=== PATIENT | female | born 1960 | race Caucasian/White ===

== ENCOUNTER → 2019-04-24 08:34 | Outpatient (CLI) | payer OTHER, SELFPAY ==
--- NOTE | 2019-04-24 | DI.MG.S_ITS ---
BILATERAL DIGITAL SCREENING MAMMOGRAM 3D/2D WITH CAD: 04/24/2019 CLINICAL: Routine screening. Family history of breast cancer. Comparison is made to exams dated: 06/15/2015 mammogram, 06/12/2014 mammogram, and 07/03/2017 mammogram - [facility]. There are scattered fibroglandular elements in both breasts. Current study was also evaluated with a Computer Aided Detection (CAD) system. No significant masses, calcifications, or other findings are seen in either breast. There has been no significant interval change. IMPRESSION: NEGATIVE There is no mammographic evidence of malignancy. A 1 year screening mammogram is recommended. This exam was interpreted at Station ID: [id number]. NOTE: For mammograms, a report in lay terms will be sent to the patient. Approximately 15% of breast malignancies will not be visualized mammographically. In the management of a palpable breast mass, a negative mammogram must not discourage biopsy of a clinically suspicious lesion. Electronically Signed By: Jovita valdez/clover:04/24/2019 09:54:54 letter sent: Normal Exam ACR BI-RADS Category 1: Negative 3341F
== END ==
PROVIDERS: PCP Student in an Organized Health Care Education/Training Program; Visit Provider Student in an Organized Health Care Education/Training Program
DX: Z12.31 Encounter for screening mammogram for malignant neoplasm of breast (principal); Z80.3 Family history of malignant neoplasm of breast
CPT/HCPCS: 77063; 77067

== ENCOUNTER 2019-06-07 14:51 | Day surgery (SDC) | payer OTHER, SELFPAY ==
--- NOTE | 2019-06-07 | PATH_ITS ---
[facility] Accession Number: [id number] . 01 Material submitted: . colon - SIGMOID POLYP X3 (2-8MM) . 02 Diagnosis: Sigmoid Colon Polyps, 2-8 mm, Biopsies: Hyperplastic polyp x3. MRV 06/10/2019 1325 Local . 02 Electronically signed: . Minor Rodríguez MD, PhD, Pathologist NPI- [id number] . 01 Gross description: . SIGMOID POLYP X3 (2-8MM): Received in formalin are 3 fragment(s) of smiley, soft tissue measuring 0.4 x 0.3 x 0.3 cm to 0.3 x 0.3 x 0.2 cm submitted entirely in 1 cassette(s) /QBJ 06/08/2019 0703 Local . 02 Pathologist provided ICD-10: K63.5 . 02 CPT . 092991 Performed at: 01 [facility] [address] [facility] [place], [place], [place] [id number] MD Lorenzo Badillo MD Phone: [phone] Performed at: [address] [facility] [address] [place], [place] [id number] MD Lakeisha Woods MD Phone: [phone]
--- NOTE | 2019-06-07 07:39 | PM.HP.1 ---
History of Present Illness History of Present Illness Date Patient Seen: 06/07/19 Time Patient Seen: 16:25 Chief complaint: [id number] Narrative: 58 Years Old Female comes in today for consideration of a screening colonoscopy. Has had one previous colonosocpy in her 30s, reportedly normal. Patient cannot quite remember what was indicated for, possibly abdominal pain. Paternal grandfather had colon cancer that was fatal. There have been no lower GI symptoms suggesting disease such as change in bowel habits, bleeding, abdominal pain or anemia. Overall health issues have been stable, including no major cardiac events for at least 6 weeks. Current Medications: 1) Estrace 0.1 Mg/gm Vaginal Cream (Estradiol) .... Insert 0.5 gram vaginally 2 times a week for atrophic vaginitis. 2) Meloxicam 15 Mg Oral Tablet (Meloxicam) .... Take one tablet by mouth daily as needed for pain 3) Metformin Hcl Er 500 Mg Oral Tablet Extended Release 24 Hour (Metformin Hcl) .... Take 2 at bedtime 4) Glyburide 5 Mg Oral Tablet (Glyburide) .... Take one tablet once daily before breakfast, for diabetes. 5) Lisinopril 5 Mg Oral Tablet (Lisinopril) .... Take 1 tablet by mouth once a day 6) Atorvastatin Calcium 40 Mg Oral Tablet (Atorvastatin Calcium) .... Take 1 tablet by mouth daily for cholesterol control. 7) Doxepin Hcl 50 Mg Oral Capsule (Doxepin Hcl) .... Take 1 tablet by mouth once a day at bedtime. 8) Clobetasol Propionate 0.05 % External Cream (Clobetasol Propionate) .... Apply thin film to the affected area twice daily as needed. Not for use on face. 9) Hydrocortisone Valerate 0.2 % External Cream (Hydrocortisone Valerate) .... Apply affected areas of hands twice daily as needed 10) Aspirin 81 Mg Oral Tablet (Aspirin) .... Take one daily to reduce cardiovascular risk Allergies: 1) Penicillin (Critical) 2) Adhesive Tape (Mild) Past Medical History: Reviewed history from 02/04/2019 and no changes required: HYPERTENSION (ICD-401.1) (ODA93-V48) BURSITIS, RIGHT SHOULDER (ICD-726.10) (GBU93-Z02.51) HYPERLIPIDEMIA (ICD-272.4) (KXJ21-D38.5) DIABETES MELLITUS, TYPE II (ICD-250.00) (EVT55-C57.9) DM, TYPE 2, W/ NEURO COMPL (ICD-250.62) (IKC09-T01.49) LICHEN SCLEROSUS OF EXTERNAL FEMALE GENITAL ORGANS (ICD-701.0) (JCL29-C32.4) OSTEOARTHRITIS (ICD-715.90) (YPN32-S88.90) CARPAL TUNNEL SYNDROME, RIGHT (ICD-354.0) (PKY91-E83.01) PAIN, FOOT, LEFT (ICD-729.5) (REV18-X66.672) ECZEMA (ICD-692.9) (SED45-P97.9) HYPERCALCEMIA (ICD-275.42) (NVP59-K99.52) ALCOHOL DEPENDENCE (ICD-303.90) (NLH83-D95.20) OBESITY (BMI <40) (ICD-278.00) (IGJ69-S58.9) TOTAL HYSTEREC WITH BSO (11/2008) (ICD-V45.77) (RYO85-S18.79) Former smoker, quit >1 yr (ICD-V15.82) (TRA81-B48.891) Past Surgical History: Knee Arthroscopy (1999) Tonsillectomy (1978) Total Hysterec with BSO (11/2008) Colonoscopy, diagnostic in 30s, normal Family History: Father: (1930) Heart Disease, Depression, Diabetes, Hypertension, Hyperlipidemia, Thyroid Cancer Mother: (8) Breast Cancer, Depression, Hypertension, Hyperlipidemia, Ovarian Cancer?, Thyroid Cancer Siblings: Deafness, Hepatitis Type C Sister (1954) Sister (1955) Brother (1962) Paternal grandfather, colon cancer, fatal Social History: Reviewed history from 11/28/2013 and no changes required: Marital Status: Single - [facility] (1953) Retired Children: Cindy (1997) Occupation: Homemaker Household Members: Julius Education: 12th grade Alcohol drinks/day: 3/day >5/day in last 3 mos: no Caffeine use/day: 3 Type of Exercise: no Exercise Times per Week: 3 Guns in home: no Dental Care w/in 6 mos.: yes Sun Exposure: occasionally Fall Risk: no falls in past year Seat Belt Use: yes Smoking Status: former smoker Tobacco Type: cigarettes Counseled to Quit Smoking: yes Packs/Day: <0.25 Year quit smokin Drug Use: never Meds Home Medications and Allergies Home Medications Medication Instructions Recorded Confirmed Type atorvastatin 40 mg PO DAILY 06/07/19 06/07/19 History clobetasol 1 applic TOPICAL BEDTIME 06/07/19 06/07/19 History doxepin 50 mg PO BEDTIME 06/07/19 06/07/19 History estradiol [Estrace] 0.5 g VAGINAL Q2D 06/07/19 06/07/19 History glyburide 5 mg PO DAILY 06/07/19 06/07/19 History lisinopril 5 mg PO DAILY 06/07/19 06/07/19 History meloxicam 15 mg PO DAILY 06/07/19 06/07/19 History metformin 500 mg PO PRN PRN 06/07/19 06/07/19 History Allergies Allergy/AdvReac Type Severity Reaction Status Date / Time Penicillins Allergy Swelling Verified 06/07/19 15:35 of Lip/Tongue/Throat Review of Systems Review of Systems Narrative: General: Complains of fatigue, weakness, and ill feeling; denies fever, chills, sweats, loss of appetite, weight change, waking-up tired, fatigued/sleepy during day, snoring, and problem getting to or staying asleep. Eyes: Complains of blurring; denies double vision, irritation/itching, redness, discharge, vision loss, eye pain, and light intolerance. ENT: Denies earache, ear discharge, ringing ears, decreased hearing, nasal congestion, nasal discharge, postnasal drip, nosebleeds, sore throat, hoarseness, itching nose/eyes, and sneezing. CV: Denies chest discomfort, palpitations, lightheadedness, passing out, SOB with exertion, SOB lying flat, PND-sudden nocturnal shortness of breath, and ankle edema. Resp: Denies cough, wheeze, SOB at rest, sputum, coughing up blood, and painful breathing. GI: Complains of diarrhea and painful swallowing; denies nausea, vomiting, constipation, change in bowel habits, abdominal pain, dark black stools, blood in stools, gas/bloating, indigestion/heartburn, reflux, loss of appetite, swallowing problems, and jaundice. : Denies painful urination, blood in urine, frequency, nocturia, incontinence, urgency, hesitancy, vaginal discharge, amenorrhea, abnormally heavy periods, abnormal vaginal bleeding, pelvic pain, painful intercourse, less interested in sex, and genital sores. MS: Complains of lower back pain, joint stiffness, muscle cramps, muscle weakness, and pain radiating down leg; denies neck pain, upper back pain, joint pain, joint swelling, restless legs, and leg pain with exertion. Derm: Denies rash, itching, dryness, skin lesions, changing lesions, and non-healing sores. Neuro: Complains of weakness of a limb, numbness/tingling, and frequent headaches; denies seizure, tremor, dizziness, transient blindness, balance problems, frequent falls, severe headaches, difficulty speaking, difficulty swallowing, clumsiness, confusion, and memory loss. Psych: Complains of sadness/hopelessness, feeling overwhelmed, lack of get/pleasure, and inadequate sleep; denies anxiety/excessive worry, excessive sleep, change in appetite, poor concentration, suicidal ideation, hallucinations, paranoia, and phobia. Endo: Denies cold intolerance, heat intolerance, excessive thirst, excessive hunger, excessive urination, and unintentional weight change. Heme: Denies abnormal bruising, bleeding problems, bleeding gums, frequent nosebleeds, and enlarged lymph nodes. Allergy: Denies hives, allergic rash, allergy symptoms, seasonal allergies, food intolerance, animal intolerance, and frequent infections. Breast: Denies left breast lump, right breast lump, breast pain, breast tenderness, erythema, nipple discharge, bloody nipple discharge, abnormal mammogram, breast enlargement, and currently . Exam Narrative Exam Narrative: General: Alert and oriented, appearing stated age and in no acute distress. Head: Head normocephalic/atraumatic. Neck: Neck soft and supple, no lymphadenopathy. Lungs: Clear to auscultation bilaterally, no wheezes, rhonchi or rales. Heart: Normal S1 and S2 with regular rate and rhythm, no audible murmurs, rubs or gallops. Abdomen: Soft, non-tender, non-distended, no organomegaly. Possitive bowel sounds. Psych: Alert and oriented x 3. Assessment & Plan Assessment & Plan narrative: Problem # 1: COLON CANCER SCREENING 1. Colonoscopy The nature and character of the procedure as well as anticipated results were discussed. The possibility of not completing the procedure was also discussed. Possible complications including aspiration pneumonia, bleeding, perforation and reaction to medications either for sedation or preparation and missed lesions were discussed. Questions were answered and proceeding to the colonoscopy was elected. Informed consent signed. I sincerely appreciate the referral allowing me to participate in this patient's care. Please contact me with any questions or concerns.
--- NOTE | 2019-06-07 07:41 | PM.OP.ENDO ---
Operative Date/Time/Diagnoses Date of procedure: 06/07/19 Time of procedure: 16:25 Pre-op diagnosis: 1. Screening for colon cancer Post-op diagnosis: other (Sigmoid polyp x3, 2-8 mm, removed with cold biopsy forceps as well as methylene blue lift and cold snare) Procedure & Clinicians Study performed: Colonoscopy Same procedure as scheduled: Yes Indications: 1. Screening for colon cancer Surgeon: Karlene Smith Procedure Notes SCOAP/Timeout: 4:36 p.m. Procedure in detail: ENDOSCOPIST: Karlene Smith MD Sedation RN: Good Trevino RN Sedation start time: 4:36 p.m. Sedation end time: 5:15 p.m. PROCEDURE: Colonoscopy with cold biopsy, methylene blue list and cold snare INDICATIONS: 1. Screening for colon cancer MEDICATION: Levsin 0.125 mg sublingual, incremental doses of Versed and fentanyl until appropriate level sedation achieved. ASA CLASS: 2 CECAL WITHDRAWAL TIME: 25 minutes COMPLICATIONS: None. EXTENT OF PROCEDURE: Cecum. QUALITY OF PREP: Good with portions of liquid stool. PROCEDURE: Prior to insertion of the colonoscope, a digital rectal examination was accomplished with circumferential palpation of the distal rectal mucosa without significant findings being noted. The high-definition colonoscope was passed into the rectum in the usual fashion and advanced over to the cecum without difficulty. The ileocecal valve, appendiceal stoma, and medial wall all could be inspected and no abnormalities were seen. ASCENDING COLON: As the colonoscope was withdrawn, care was taken to expose and inspect the haustral folds and no abnormalities were seen. HEPATIC FLEXURE: Normal no polyps, diverticula or other abnormalities. TRANSVERSE COLON: Normal no polyps, diverticula or other abnormalities. DESCENDING COLON: Normal no polyps, diverticula or other abnormalities. SIGMOID COLON: Three polyps were appreciated, 2-8 mm in size. The smaller 2 polyps were removed with cold biopsy forceps. The largest polyp was lifted with methylene blue and removed with a 10 mm cold snare. Excellent hemostasis. Otherwise, no diverticula or other abnormalities. RECTUM: Normal. J maneuver was produced. There was no significant perianal disease. The J maneuver was broken. The remainder of the rectum was inspected and there was no external hemorrhoid disease. The scope was withdrawn. IMPRESSION: 1. Sigmoid polyp x3, 2-8 mm. Smaller polyps were removed with cold biopsy forceps. 8 mm polyp lifted with methylene blue and removed with cold biopsy forceps. PLAN: 1. Follow-up in clinic status post pathology results. The possibility of a missed lesion including a malignancy has been discussed with the patient previously. Potential alarm symptoms have been discussed and should be reported immediately. Post-procedure Recommendations: Will call with biopsy results Follow up: weeks (2) Disposition: PACU
[2019-06-07] MEDS: SODIUM CHLORIDE 0.9% 1,000 ML 200 ML IV (15:07)
[2019-06-07] MEDS: HYOSCYAMINE 0.125 MG TABLET PO (15:12)
[2019-06-07 15:13] VITALS: BP 140/84; PULSE 84; RESP 20; TEMP 36.8; O2SAT 98; BMI 34.2
[2019-06-07] MEDS: METHYLENE BLUE 50 MG/10 ML VIAL INJ (17:17)
[2019-06-07] MEDS: MIDAZOLAM 5 MG/ML VIAL 4 MG IV (17:18)
[2019-06-07] MEDS: fentaNYL 250 MCG/5 ML INJ IV (17:19)
[2019-06-07 17:25] VITALS: BP 146/74; PULSE 72; RESP 9; TEMP 36.6; O2SAT 100
[2019-06-07 17:29] VITALS: BP 153/83; PULSE 69; RESP 12; O2SAT 100
== END 2019-06-07 17:50 | disposition home or self-care (01) ==
PROVIDERS: PCP Student in an Organized Health Care Education/Training Program; Referring Provider Student in an Organized Health Care Education/Training Program; Visit Provider Student in an Organized Health Care Education/Training Program
PROC: 0DJD8ZZ Inspection of Lower Intestinal Tract, Via Natural or Artificial Opening Endoscopic (ICD-10-PCS; CPT 45378; principal; 2019-06-07 16:00)
DX: Z12.11 Encounter for screening for malignant neoplasm of colon (principal); D12.5 Benign neoplasm of sigmoid colon
CPT/HCPCS: 45381; 45385; 45380; J2250; J3010; Q9968

== ENCOUNTER → 2020-10-26 08:09 | Outpatient (CLI) | payer OTHER, SELFPAY ==
--- NOTE | 2020-10-26 08:11 | DI.MG.S_ITS ---
BILATERAL DIGITAL SCREENING MAMMOGRAM 3D/2D WITH CAD: 10/26/2020 CLINICAL: Routine screening. Family history of breast cancer. Comparison is made to exams dated: 04/24/2019 mammogram, 07/03/2017 mammogram, and 06/15/2015 mammogram - [facility]. There are scattered fibroglandular elements in both breasts. Current study was also evaluated with a Computer Aided Detection (CAD) system. There are benign calcifications in both breasts. No significant masses, calcifications, or other findings are seen in either breast. There has been no significant interval change. IMPRESSION: BENIGN There is no mammographic evidence of malignancy. A 1 year screening mammogram is recommended. This exam was interpreted at Station ID: [id number]. NOTE: For mammograms, a report in lay terms will be sent to the patient. Approximately 15% of breast malignancies will not be visualized mammographically. In the management of a palpable breast mass, a negative mammogram must not discourage biopsy of a clinically suspicious lesion. Electronically Signed By: Lorenzo givens/clover:10/26/2020 09:50:14 letter sent: Normal Exam ACR BI-RADS Category 2: Benign Finding(s) 3342F
== END ==
PROVIDERS: PCP Student in an Organized Health Care Education/Training Program; Referring Provider Student in an Organized Health Care Education/Training Program; Visit Provider Student in an Organized Health Care Education/Training Program
DX: Z12.31 Encounter for screening mammogram for malignant neoplasm of breast (principal); Z80.3 Family history of malignant neoplasm of breast
CPT/HCPCS: 77063; 77067

== ENCOUNTER → 2021-12-31 14:44 | Outpatient (CLI) | payer OTHER, SELFPAY ==
--- NOTE | 2021-12-31 14:45 | DI.MG.S_ITS ---
BILATERAL DIGITAL SCREENING MAMMOGRAM 3D/2D WITH CAD: 12/31/2021 CLINICAL: Routine screening. Family history of breast cancer. Comparison is made to exams dated: 10/26/2020 mammogram, 04/24/2019 mammogram, and 07/03/2017 mammogram - [facility]. There are scattered areas of fibroglandular density in both breasts (category b / 25%-50% glandular tissue). Current study was also evaluated with a Computer Aided Detection (CAD) system. There are benign calcifications in both breasts. No significant masses, calcifications, or other findings are seen in either breast. There has been no significant interval change. IMPRESSION: BENIGN There is no mammographic evidence of malignancy. A 1 year screening mammogram is recommended. Based on Tyrer-Cuzick model (a risk assessment model), the patient's lifetime risk is 20.8% and her 10 year risk is 9.0%. If a patient has an elevated risk, a more comprehensive evaluation should be considered and/or a referral to a genetic counselor. The [employer], [employer], and NCCN Guidelines advise the consideration of Breast MRI as an adjunct to screening mammography in patients whose Lifetime risk to develop breast cancer is 20% or higher. This exam was interpreted at Station ID: [id number]. NOTE: For mammograms, a report in lay terms will be sent to the patient. Approximately 15% of breast malignancies will not be visualized mammographically. In the management of a palpable breast mass, a negative mammogram must not discourage biopsy of a clinically suspicious lesion. Electronically Signed By: Kel ruiz/clover:12/31/2021 16:52:04 letter sent: Normal Exam ACR BI-RADS Category 2: Benign Finding(s) 3342F
== END ==
PROVIDERS: PCP Family Medicine; Referring Provider Family Medicine; Visit Provider Family Medicine
DX: Z12.31 Encounter for screening mammogram for malignant neoplasm of breast (principal); Z80.3 Family history of malignant neoplasm of breast
CPT/HCPCS: 77063; 77067

== ENCOUNTER → 2023-01-03 15:32 | Outpatient (CLI) | payer OTHER, SELFPAY ==
--- NOTE | 2023-01-03 | DI.MG.S_ITS ---
BILATERAL DIGITAL SCREENING MAMMOGRAM 3D/2D WITH CAD: 01/03/2023 CLINICAL: Routine screening. Family history of breast cancer. Comparison is made to exams dated: 12/31/2021 mammogram, 04/24/2019 mammogram, and 10/26/2020 mammogram - [facility]. There are scattered areas of fibroglandular density in both breasts (category b / 25%-50% glandular tissue). Current study was also evaluated with a Computer Aided Detection (CAD) system. There are benign calcifications in both breasts. No significant masses, calcifications, or other findings are seen in either breast. There has been no significant interval change. IMPRESSION: BENIGN There is no mammographic evidence of malignancy. A 1 year screening mammogram is recommended. Consider supplemental MRI screening. Based on Tyrer-Cuzick model (a risk assessment model), the patient's lifetime risk is 20.3% and her 10 year risk is 9.1%. If a patient has an elevated risk, a more comprehensive evaluation should be considered and/or a referral to a genetic counselor. The [place] [employer], [employer], and NCCN Guidelines advise the consideration of Breast MRI as an adjunct to screening mammography in patients whose Lifetime risk to develop breast cancer is 20% or higher. This exam was interpreted at Station ID: [id number]. NOTE: For mammograms, a report in lay terms will be sent to the patient. Approximately 15% of breast malignancies will not be visualized mammographically. In the management of a palpable breast mass, a negative mammogram must not discourage biopsy of a clinically suspicious lesion. Electronically Signed By: Kel Cornelius M.D. lc/:01/04/2023 07:54:07 letter sent: Normal Exam ACR BI-RADS Category 2: Benign Finding(s) 3342F
== END ==
PROVIDERS: PCP Family Medicine; Referring Provider Registered Nurse; Visit Provider Registered Nurse
DX: Z12.31 Encounter for screening mammogram for malignant neoplasm of breast (principal); Z80.3 Family history of malignant neoplasm of breast
CPT/HCPCS: 77063; 77067

== ENCOUNTER → 2023-01-25 09:26 | Outpatient (CLI) | payer OTHER, SELFPAY ==
--- NOTE | 2023-01-25 | DI.RAD.S_ITS ---
Bone Density Report Name: RASHEED TAVERA Age: 62 Sex: Female Ethnicity: White Date of : 1960 Indication: postmenopausal; screening for osteoporosis; Referring Provider: CHRISS CARMEN Study: Bone densitometry was performed. Exam Date: January 25, 2023 Accession number: [id number] Bone Density: Region BMD T-score Z-score Classification AP Spine(L1-L4) 1.028 -0.2 1.4 Normal Femoral Neck (Left) 0.815 -0.3 1.1 Normal Total Hip (Left) 0.895 -0.4 0.7 Normal Femoral Neck (Right) 0.796 -0.5 0.9 Normal Total Hip (Right) 0.866 -0.6 0.5 Normal Total Hip Mean 0.881 -0.5 0.6 Normal World Health Organization criteria for BMD impression classify patients as: Normal (T-score at or above -1.0), Osteopenia (T-score between -1.0 and -2.5), or Osteoporosis (T-score at or below -2.5). 10-year Fracture Risk: FRAX not reported because: All T-scores for Spine Total, Hip Total, Femoral Neck at or above -1.0 Impression: The patient has normal bone mass. Discussion: BONE DENSITY IS ABOVE THE MINIMUM DESIRABLE LEVEL AT ALL SKELETAL SITES TESTED. This patient's bone mineral density is above the minimum desirable level (T-score -1.0 or better) at all sites measured. The patient should follow a healthful lifestyle (good nutrition with adequate calcium and vitamin D, and appropriate weight-bearing exercise). Follow-Up: Consider repeating this study in 5 years or sooner if there is some new clinical indication. Reported by: DAVID OSBORNE M.D on 01/25/2023 9:53:00 AM.
== END ==
PROVIDERS: PCP Registered Nurse; Referring Provider Registered Nurse; Visit Provider Registered Nurse
DX: E21.0 Primary hyperparathyroidism (principal)
CPT/HCPCS: 77080

== ENCOUNTER 2023-09-06 12:59 | Emergency (ER) | payer OTHER, SELFPAY ==
[2023-09-06 13:02] VITALS: BP 130/67; PULSE 90; RESP 18; TEMP 36.6; O2SAT 98; BMI 29.6
--- NOTE | 2023-09-06 13:29 | DI.RAD.S_ITS ---
PROCEDURE: XR CHEST 1V INDICATIONS: chest pain TECHNIQUE: One view of the chest was acquired. COMPARISON: [facility], , CHEST 1 VIEW, 10/04/2014, 14:03. FINDINGS: Surgical changes and devices: None. Lungs and pleura: Lungs are clear. No pleural effusions or pneumothorax. Mediastinum: Mediastinal contours appear normal. Mild cardiomegaly. Bones and chest wall: No suspicious bony lesions. Overlying soft tissues appear unremarkable. IMPRESSION: Mild cardiomegaly. No evidence acute pulmonary process. Dictated by: Melvin Cope M.D. on 09/06/2023 at 14:25 Approved by: Melvin Cope M.D. on 09/06/2023 at 14:26
[2023-09-06 13:47] VITALS: PULSE 85; O2SAT 96
[2023-09-06 13:57] LABS: Add Manual Diff / Slide Review NO; Basophils Absolute Auto 100 /uL (0-100); Basophils Percent Auto 0.6 % (0-2); Eosinophils Absolute Auto 300 /uL (0-450); Eosinophils Percent Auto 2.1 % (2-4); Hematocrit 37.6 % (36-46); Hemoglobin 12.8 g/dL (12.0-16.0); Lymphocytes Absolute Auto 2100 /uL (1100-4500); Lymphocytes Percent Auto 16.8 % (25-40); Mean Corpuscular HGB Conc 34.1 % (30-36); Mean Corpuscular Hemoglobin 31.3 PG (26-34); Mean Corpuscular Volume 91.8 fL (80-100); Monocytes Absolute Auto 1200 /uL (0-900); Monocytes Percent Auto 9.5 % (3-14); Neutrophils Absolute Auto 8900 /uL (1500-7000); Platelet Count 299 X10^3/uL (150-400); Red Cell Distribution Width 12.9 % (11.6-14.8); White Blood Cell Count 12.5 X10^3/uL (4.5-11.0)
[2023-09-06 13:58] LABS: Prothrombin Time 11.2 SECONDS (9.4-12.5)
[2023-09-06 14:00] VITALS: BP 119/57; PULSE 80; RESP 20; O2SAT 97
[2023-09-06 14:00] LABS: PTT Partial Thromboplastin Tim 31 SECONDS (25.1-36.5)
[2023-09-06 14:01] LABS: Alanine Aminotransferase 23 IU/L (<35); Albumin 4.3 g/dL (3.5-5.0); Albumin Globulin Ratio 1.7 (1.0-2.8); Alkaline Phosphatase 74 U/L (38-126); Aspartate Aminotransferase 17 IU/L (14-36); BUN Creatinine Ratio 25.5 (6-22); Bilirubin Total 0.6 mg/dL (0.2-1.3); Blood Urea Nitrogen 14 mg/dL (7-17); Calcium 10.7 mg/dL (8.4-10.2); Carbon Dioxide 28 mmol/L (22-32); Chloride 105 mmol/L (98-107); Creatine Kinase 68 U/L (30-135); Estimated Glomerular Filt Rate > 60 mL/min (>60); Globulin 2.6 g/dL (1.7-4.1); Glucose 136 mg/dL (80-110); HEMOLYSIS < 15 (0-50); Lipase 70 U/L (23-300); Potassium 3.9 mmol/L (3.4-5.1); Sodium 137 mmol/L (137-145); Total Protein 6.9 g/dL (6.3-8.2)
[2023-09-06 14:13] LABS: Troponin I < 0.012 ng/mL (0.01-0.034)
--- NOTE | 2023-09-06 14:23 | ED.GENADULT ---
HPI - General Adult General Chief complaint: Upper Respiratory Symptoms Stated complaint: Per PT Pneumonia. Diff Breathing, chest/back pain Time Seen by Provider: 09/06/23 14:23 Source: patient, RN notes reviewed and old records reviewed Mode of arrival: Ambulatory Limitations: no limitations History of Present Illness HPI narrative: 63-year-old female with history of diabetes type 2, hypertension, dyslipidemia, anxiety who presents with complaint of generalized tiredness or fatigue, difficulty with epigastric/abdominal pain bilaterally. Initially worse on the right but now little bit more on the left. Patient states it has been constant without any resolution. Patient states initially started Monday has been getting worse over the past couple days. She finds it is worse if she stands up straight. She feels better if she is bent over. She also has pain with deep breaths. She states no change with food or drink. Patient states she is felt warm but no objective fevers. She has had a mild cough but nonproductive. She describes some nausea but no vomiting. She states normal bowel movements, normal urination. States radiates to her back. She denies any rash or skin changes. No swelling of extremities. Patient states she is on metformin, glipizide, lisinopril, rosuvastatin, venlafaxine, vitamin-D and flaxseed oil. Prior surgeries include total hysterectomy and tonsillectomy. Allergic to penicillin. Occasional tobacco, occasional alcohol, no recreational drugs. She has flown back from [place] recently but no other long distance travel or sitting for extended periods of time. She does note that her dad a month ago and today is his birthday. She is also caregiving for her mother who had a recent hospitalization followed by several weeks in rehab and has now returned home. Related Data Home Medications Medication Instructions Recorded Confirmed atorvastatin 40 mg tablet 40 mg PO DAILY 06/07/19 06/07/19 clobetasol 0.05 % topical cream 1 applic topical BEDTIME 06/07/19 06/07/19 doxepin 50 mg capsule 50 mg PO BEDTIME 06/07/19 06/07/19 estradiol 0.01% (0.1 mg/gram) 0.5 g vaginal Q2D 06/07/19 06/07/19 vaginal cream (Estrace) glyburide 5 mg tablet 5 mg PO DAILY 06/07/19 06/07/19 lisinopril 5 mg tablet 5 mg PO DAILY 06/07/19 06/07/19 meloxicam 15 mg tablet 15 mg PO DAILY 06/07/19 06/07/19 metformin 500 mg tablet 500 mg PO PRN PRN Pain (Scale 06/07/19 06/07/19 Score 1-3) Previous Rx's Medication Instructions Recorded doxycycline hyclate 100 mg tablet 100 mg PO BID 10 days #20 tabs 09/06/23 Allergies Allergy/AdvReac Type Severity Reaction Status Date / Time Penicillins Allergy Swelling Verified 09/06/23 13:06 of Lip/Tongue/Throat Review of Systems Review of Systems ROS Unobtainable: All systems reviewed & are unremarkable except as noted in HPI and below Patient History Social History household members: significant other Smoking Status: Former smoker alcohol intake: current Smoking Status: Former smoker alcohol intake frequency: a few times a week Substance Use Type: does not use Exam Narrative Exam Narrative: GENERAL: Alert and oriented x three, female in mild distress. HEENT: Head normocephalic, atraumatic, EOMI, pupils reactive, face symmetric, moist mucous membranes NECK: Supple, full range of motion CARDIOVASCULAR: Regular rate and rhythm without murmurs, rubs or gallops. RESPIRATORY: Breath sounds equal bilaterally, no wheezes rales or rhonchi. No tachypnea or accessory muscle use. Speaks in full sentences. ABDOMEN: Soft, for right upper quadrant tenderness although fairly mild. Normoactive bowel sounds all 4 quadrants. No guarding or rebound, rigidity, no mass, distended. : No CVA tenderness EXTREMITIES: Normal range of motion, no clubbing or edema. Neurovascularly intact NEUROLOGICAL: Cranial nerves II through XII grossly intact. Moving all extremities SKIN: Warm, dry, no petechiae, no rashes or lesions, no vesicles or other skin changes. Initial Vital Signs Initial Vital Signs: Vital Signs Temperature 97.8 F 09/06/23 13:02 Pulse Rate 90 09/06/23 13:02 Respiratory Rate 18 09/06/23 13:02 Blood Pressure 130/67 09/06/23 13:02 Pulse Oximetry 98 09/06/23 13:02 Oxygen Delivery Method Room Air 09/06/23 13:02 Course Orders Ordered: ED Orders 09/06/23 13:18 EKG-12 Lead Stat 09/06/23 13:29 XR chest 1V Stat 09/06/23 13:38 Complete Blood Count AUTO DIFF Stat Comprehensive Metabolic Panel Stat Lipase Stat Magnesium Stat PTT Partial Thromboplastin Isma Stat Prothrombin Time INR Stat Troponin & CK Cardiac Panel Stat 09/06/23 14:50 CT abdomen pelvis w con Stat CT angio chest PE protocol Stat Discontinued Medications Acetaminophen (Acetaminophen 325 Mg Tablet) 975 mg PO NOW ONE Stop: 09/06/23 14:51 Last Admin: 09/06/23 14:55 Dose: 975 mg Documented By: LUPE Aspirin (Aspirin 81 Mg Chew Tab) 324 mg PO NOW ONE Stop: 09/06/23 13:30 Last Admin: 09/06/23 14:50 Dose: Not Given Documented By: LUPE Vital Signs Vital signs: Vital Signs - 8 hr 09/06/23 13:02 09/06/23 13:47 09/06/23 14:00 Temperature 97.8 F Pulse Rate 90 85 Respiratory Rate 18 Blood Pressure 130/67 119/57 L Pulse Oximetry 98 96 Oxygen Delivery Method Room Air 09/06/23 14:00 09/06/23 14:30 09/06/23 14:30 Temperature Pulse Rate 80 80 Respiratory Rate 20 20 Blood Pressure 121/59 L Pulse Oximetry 97 96 Oxygen Delivery Method 09/06/23 16:35 Temperature Pulse Rate 80 Respiratory Rate 14 Blood Pressure 125/60 Pulse Oximetry 96 Oxygen Delivery Method Room Air Medical Decision Making Lab Data 09/06/23 13:38 09/06/23 13:38 Labs: Lab Results 09/06/23 Range/Units 13:38 WBC 12.5 H (4.5-11.0) X10^3/uL RBC 4.10 (4.0-5.2) X10^6/uL Hgb 12.8 (12.0-16.0) g/dL Hct 37.6 (36-46) % MCV 91.8 (80-100) fL MCH 31.3 (26-34) PG MCHC 34.1 (30-36) % RDW 12.9 (11.6-14.8) % Plt Count 299 (150-400) X10^3/uL Neut % (Auto) 71.0 (50-75) % Lymph % (Auto) 16.8 L (25-40) % [place] % (Auto) 9.5 (3-14) % Eos % (Auto) 2.1 (2-4) % Baso % (Auto) 0.6 (0-2) % Neut # (Auto) 8900 H (4392-3163) /uL Lymph # (Auto) 2100 (6394-0166) /uL [place] # (Auto) 1200 H (0-900) /uL Eos # (Auto) 300 (0-450) /uL Baso # (Auto) 100 (0-100) /uL PT 11.2 (9.4-12.5) SECONDS INR 1.0 (0.9-1.3) APTT 31 (25.1-36.5) SECONDS Sodium 137 (137-145) mmol/L Potassium 3.9 (3.4-5.1) mmol/L Chloride 105 (98-107) mmol/L Carbon Dioxide 28 (22-32) mmol/L BUN 14 (7-17) mg/dL Creatinine 0.55 (0.52-1.04) mg/dL Estimated GFR > 60 (>60) mL/min BUN/Creatinine Ratio 25.5 H (6-22) Glucose 136 H (80-110) mg/dL Calcium 10.7 H (8.4-10.2) mg/dL Magnesium 2.0 (1.6-2.3) mg/dL Total Bilirubin 0.6 (0.2-1.3) mg/dL AST 17 (14-36) IU/L ALT 23 (<35) IU/L Alkaline Phosphatase 74 (38-126) U/L Total Creatine Kinase 68 (30-135) U/L Troponin I < 0.012 (0.01-0.034) ng/mL Total Protein 6.9 (6.3-8.2) g/dL Albumin 4.3 (3.5-5.0) g/dL Globulin 2.6 (1.7-4.1) g/dL Albumin/Globulin Ratio 1.7 (1.0-2.8) Lipase 70 (23-300) U/L Imaging Data Chest x-ray: Radiologist's Impression: [address] [address] XRay Report Signed Patient: Suzanne Berrios MR#: [id number] : 1960 Acct:[id number] Age/Sex: 63 / F Date of Service: 09/06/23 Loc: ED Accession Number: [id number] Procedure: XR chest 1V Ordering Provider: Monique Bowser D.O. PROCEDURE: XR CHEST 1V INDICATIONS: chest pain TECHNIQUE: One view of the chest was acquired. COMPARISON: [facility], , CHEST 1 VIEW, 10/04/2014, 14:03. FINDINGS: Surgical changes and devices: None. Lungs and pleura: Lungs are clear. No pleural effusions or pneumothorax. Mediastinum: Mediastinal contours appear normal. Mild cardiomegaly. Bones and chest wall: No suspicious bony lesions. Overlying soft tissues appear unremarkable. IMPRESSION: Mild cardiomegaly. No evidence acute pulmonary process. Dictated by: Melvin Cope M.D. on 09/06/2023 at 14:25 Approved by: Melvin Cope M.D. on 09/06/2023 at 14:26 CT scan - chest: Radiologist's Impression: [place] [address] CT Scan Report Signed Patient: Suzanne Berrios MR#: [id number] : 1960 Acct:[id number] Age/Sex: 63 / F Date of Service: 09/06/23 Loc: ED Accession Number: [id number] Procedure: CT angio chest PE protocol Ordering Provider: Monique Bowser D.O. PROCEDURE: CT ANGIO CHEST PE PROTOCOL INDICATIONS: epigastric pain, worse upright, better bent, pleuritic TECHNIQUE: After the administration of intravenous contrast, 2 mm thick sections acquired from the pulmonary apices to the posterior costophrenic angles. 3-dimensional maximum intensity projection (MIP) coronal and sagittal reformats were then acquired through the thorax. For radiation dose reduction, the following was used: automated exposure control, adjustment of mA and/or kV according to patient size. COMPARISON: None. FINDINGS: Image quality: Diagnostic. Pulmonary arteries: Pulmonary arteries are normal in size, and demonstrate no intraluminal filling defects to suggest central pulmonary embolism. Lower Neck: No enlarged lymph nodes. Thyroid: No thyroid nodules which require sonographic follow up, per consensus guidelines. Axillae: No enlarged lymph nodes. Chest Wall: Unremarkable. Bones: Unremarkable. Lungs and Pleura: No pneumothorax or pleural effusions. There is extensive pulmonary parenchymal disease in the left lower lobe, likely representing pneumonia. However, there is a masslike area, which may simply represent masslike consolidation in the posterior basal segment. Heart: Heart size is normal. Trace pericardial effusion. Thoracic Vessels: No aortic aneurysm. Mediastinum and Elif: Shotty mediastinal adenopathy may potentially simply represent reactive adenopathy. Esophagus: No wall thickening. No hiatal hernia. Upper Abdomen: Visualized upper abdomen solid organs and bowel loops appear normal. IMPRESSION: 1. No acute pulmonary emboli. 2. Findings in the left lung may all simply represent basilar pneumonia. However, there is a portion of the density which has a masslike quality. 3. Shotty mediastinal adenopathy may potentially all be reactive. Comment: Recommend follow-up chest CT in 3 months to document resolution after treatment. Dictated by: Melvin Cope M.D. on 09/06/2023 at 16:08 Approved by: Melvin Cope M.D. on 09/06/2023 at 16:12 CT scan - abdomen/pelvis: Radiologist's Impression: [place] [address] CT Scan Report Signed Patient: Suzanne Berrios MR#: [id number] : 1960 Acct:[id number] Age/Sex: 63 / F Date of Service: 09/06/23 Loc: ED Accession Number: [id number] Procedure: CT abdomen pelvis w con Ordering Provider: Monique Bowser D.O. PROCEDURE: CT ABDOMEN PELVIS W CON INDICATIONS: epigastric pain b/l u, worse upright, better bent, pleuritic TECHNIQUE: After the administration of intravenous contrast, axial sections acquired from the lung bases to the pubic symphysis. Coronal and sagittal reformats were performed. For radiation dose reduction, the following was used: automated exposure control, adjustment of mA and/or kV according to patient size. COMPARISON: None. FINDINGS: Image quality: Diagnostic. Lower Chest: Please correlate with CT angiogram of chest findings. ABDOMEN: Liver: There is hepatomegaly. No solid hepatic lesion. Gallbladder: Small calcified stone in dependent portion of gallbladder lumen is seen. No gallbladder wall thickening. Biliary ducts: No biliary dilation. Pancreas: No ductal dilation. Spleen: Size is within normal limits. Adrenal Glands: Diffusely thickened bilateral adrenal glands is seen. Possible hypodense nodule involving left adrenal gland measures 1.6 x 1.4 cm in size is seen series 2, image 21. Kidneys and Ureters: No hydronephrosis. No solid mass. No complex renal cystic lesion which requires follow up. Stomach and Bowel: There is mild fecal stasis in the colon. No bowel obstruction. No stomach or small bowel wall thickening. No colonic wall thickening. No abscess collection. Peritoneum: No abnormal intraperitoneal fluid. No free air. Ventral Wall: No significant ventral hernia. Abdominal Nodes: No retroperitoneal or mesenteric adenopathy by size criteria. Vessels: Aorta and inferior vena cava are normal in size. PELVIS: Pelvic Organs: There is prior hysterectomy.. Bladder: No bladder wall thickening, accounting for underdistention. Pelvic Nodes: No enlarged lymph nodes. Miscellaneous: No inguinal hernias are seen. Bones: No aggressive osseous abnormality. Degenerative disc disease throughout lumbar spine is seen. No acute vertebral body compression fracture. IMPRESSION: 1. No acute inflammatory process is seen in abdomen or pelvis. No bowel obstruction. No free fluid or free air. 2. Hepatomegaly, no discrete hepatic lesion. 3. Cholelithiasis without CT evidence of acute cholecystitis. No biliary ductal dilatation. 4. Diffusely thickened bilateral adrenal glands with suggestion of left adrenal nodule as above which may indicate adrenal adenoma. Dictated by: Javier Inman M.D. on 09/06/2023 at 16:08 Approved by: Javier Inman M.D. on 09/06/2023 at 16:11 ECG Data Attestation: I personally reviewed and interpreted this ECG as follows: Prior ECG tracings: available for review Interpretation: Sinus rhythm rate of 80, DC 176 QRS is 74 QTC of 392. No acute ST changes appreciated. Patient has prior from 10/04/2014 which appears similar. [facility] Narrative Medical decision making narrative: 63-year-old female with history of hypertension, dyslipidemia diabetes type 2. Patient has had epigastric discomfort radiating to both sides of her abdomen for the past 4 days. She has had some pleuritic pain with it as well in his more uncomfortable when she is standing upright and more comfortable when bent over. Subjective fevers some nausea, no vomiting. States pain radiates towards her back. Has not changed location at any time. It has been persistent without any resolution since Monday. Labs show white count of 12.5 hemoglobin of 12.8 hematocrit of 37 platelets of 299 INR 1, creatinine 0.55 with a BUN of 14 glucose of 136, sodium 137 potassium of 3.9 chloride of 105 and a CO2 of 28. Calcium slightly elevated at 10.7. Mag is 2 with a troponin less than 0.012, patient has had 4 days of symptoms with negative troponin and no acute EKG changes. Chest x-ray does show some mild cardiomegaly. Patient has had some travel and with her symptoms CT chest as well as abdomen was obtained. They show appears to be pneumonia but there is some dense like or masslike attributes and CT in 3 months is recommended. This was shared with the patient. Patient also had some thickening of the adrenal glands possible nodule, gallstones and hepatomegaly. All of this was reviewed with the patient as well. Plan for antibiotics, patient is to follow up with primary care to set up follow up CT and reviewed return precautions. All questions answered. Discharge Plan Departure Patient Disposition: Home Clinical Impression: Pneumonia, Cholelithiasis Activity Restrictions/Additional Instructions: Your workup today does show gallstones but without any evidence of infection as well as some thickening of the adrenal glands and possibly left adrenal nodule and hepatomegaly. The CT of your chest shows what is likely a basilar pneumonia but you should have follow-up CT in 3 months to document resolution as there is a masslike quality to a portion on the imaging. Please talk with your physician when you follow-up to make sure this is done. Take oral antibiotics as prescribed. Start this today. Can take Tylenol up to a 1000 mg every 6 hours and/or ibuprofen up to 600 mg every 6 hours as needed for pain. Prescription sent to [facility] in [place]. Please return for fevers increasing abdominal back or flank pain, persistent vomiting, coughing up blood, lightheadedness or passing out, new swelling in her extremities or other new or concerning changes. Prescriptions: New doxycycline hyclate 100 mg tablet 100 mg PO BID 10 Days Qty: 20 0RF No Action atorvastatin 40 mg Tablet 40 mg PO DAILY metformin 500 mg Tablet 500 mg PO PRN PRN (Reason: Pain (Scale Score 1-3)) doxepin 50 mg Capsule 50 mg PO BEDTIME glyburide 5 mg Tablet 5 mg PO DAILY meloxicam 15 mg Tablet 15 mg PO DAILY clobetasol 0.05 % Cream 1 applic TOPICAL BEDTIME lisinopril 5 mg Tablet 5 mg PO DAILY estradiol [Estrace] 0.01 % (0.1 mg/gram) Cream 0.5 g VAGINAL Q2D Referrals: Darby Braun ARNP [Primary Care Provider] - Stand Alone Forms: Patient Portal/API
[2023-09-06 14:30] VITALS: BP 121/59; PULSE 80; RESP 20; O2SAT 96
--- NOTE | 2023-09-06 14:50 | DI.CT.S_ITS ---
PROCEDURE: CT ABDOMEN PELVIS W CON INDICATIONS: epigastric pain b/l u, worse upright, better bent, pleuritic TECHNIQUE: After the administration of intravenous contrast, axial sections acquired from the lung bases to the pubic symphysis. Coronal and sagittal reformats were performed. For radiation dose reduction, the following was used: automated exposure control, adjustment of mA and/or kV according to patient size. COMPARISON: None. FINDINGS: Image quality: Diagnostic. Lower Chest: Please correlate with CT angiogram of chest findings. ABDOMEN: Liver: There is hepatomegaly. No solid hepatic lesion. Gallbladder: Small calcified stone in dependent portion of gallbladder lumen is seen. No gallbladder wall thickening. Biliary ducts: No biliary dilation. Pancreas: No ductal dilation. Spleen: Size is within normal limits. Adrenal Glands: Diffusely thickened bilateral adrenal glands is seen. Possible hypodense nodule involving left adrenal gland measures 1.6 x 1.4 cm in size is seen series 2, image 21. Kidneys and Ureters: No hydronephrosis. No solid mass. No complex renal cystic lesion which requires follow up. Stomach and Bowel: There is mild fecal stasis in the colon. No bowel obstruction. No stomach or small bowel wall thickening. No colonic wall thickening. No abscess collection. Peritoneum: No abnormal intraperitoneal fluid. No free air. Ventral Wall: No significant ventral hernia. Abdominal Nodes: No retroperitoneal or mesenteric adenopathy by size criteria. Vessels: Aorta and inferior vena cava are normal in size. PELVIS: Pelvic Organs: There is prior hysterectomy.. Bladder: No bladder wall thickening, accounting for underdistention. Pelvic Nodes: No enlarged lymph nodes. Miscellaneous: No inguinal hernias are seen. Bones: No aggressive osseous abnormality. Degenerative disc disease throughout lumbar spine is seen. No acute vertebral body compression fracture. IMPRESSION: 1. No acute inflammatory process is seen in abdomen or pelvis. No bowel obstruction. No free fluid or free air. 2. Hepatomegaly, no discrete hepatic lesion. 3. Cholelithiasis without CT evidence of acute cholecystitis. No biliary ductal dilatation. 4. Diffusely thickened bilateral adrenal glands with suggestion of left adrenal nodule as above which may indicate adrenal adenoma. Dictated by: Javier Inman M.D. on 09/06/2023 at 16:08 Approved by: Javier Inman M.D. on 09/06/2023 at 16:11
--- NOTE | 2023-09-06 14:50 | DI.CT.S_ITS ---
PROCEDURE: CT ANGIO CHEST PE PROTOCOL INDICATIONS: epigastric pain, worse upright, better bent, pleuritic TECHNIQUE: After the administration of intravenous contrast, 2 mm thick sections acquired from the pulmonary apices to the posterior costophrenic angles. 3-dimensional maximum intensity projection (MIP) coronal and sagittal reformats were then acquired through the thorax. For radiation dose reduction, the following was used: automated exposure control, adjustment of mA and/or kV according to patient size. COMPARISON: None. FINDINGS: Image quality: Diagnostic. Pulmonary arteries: Pulmonary arteries are normal in size, and demonstrate no intraluminal filling defects to suggest central pulmonary embolism. Lower Neck: No enlarged lymph nodes. Thyroid: No thyroid nodules which require sonographic follow up, per consensus guidelines. Axillae: No enlarged lymph nodes. Chest Wall: Unremarkable. Bones: Unremarkable. Lungs and Pleura: No pneumothorax or pleural effusions. There is extensive pulmonary parenchymal disease in the left lower lobe, likely representing pneumonia. However, there is a masslike area, which may simply represent masslike consolidation in the posterior basal segment. Heart: Heart size is normal. Trace pericardial effusion. Thoracic Vessels: No aortic aneurysm. Mediastinum and Elif: Shotty mediastinal adenopathy may potentially simply represent reactive adenopathy. Esophagus: No wall thickening. No hiatal hernia. Upper Abdomen: Visualized upper abdomen solid organs and bowel loops appear normal. IMPRESSION: 1. No acute pulmonary emboli. 2. Findings in the left lung may all simply represent basilar pneumonia. However, there is a portion of the density which has a masslike quality. 3. Shotty mediastinal adenopathy may potentially all be reactive. Comment: Recommend follow-up chest CT in 3 months to document resolution after treatment. Dictated by: Melvin Cope M.D. on 09/06/2023 at 16:08 Approved by: Melvin Cope M.D. on 09/06/2023 at 16:12
[2023-09-06] MEDS: ACETAMINOPHEN 325 MG TABLET 975 MG PO (14:55)
[2023-09-06 16:35] VITALS: BP 125/60; PULSE 80; RESP 14; O2SAT 96
== END 2023-09-06 16:37 | disposition home or self-care (01) ==
PROVIDERS: Emergency Provider Emergency Medicine; PCP Registered Nurse
DX: J18.9 Pneumonia, unspecified organism (principal); K80.20 Calculus of gallbladder without cholecystitis without obstruction; Z87.891 Personal history of nicotine dependence
CPT/HCPCS: 36415; 71045; 71275; 74177; 80053; 82550; 83690; 83735; 84484; 85025; 85610; 85730; 93005; 99284; Q9967

== ENCOUNTER → 2023-09-27 10:37 | Outpatient (CLI) | payer OTHER, SELFPAY ==
--- NOTE | 2023-09-27 10:39 | DI.CT.S_ITS ---
PROCEDURE: CT ABDOMEN ADRENAL PROTOCOL INDICATIONS: Disorder of adrenal gland, unspecified TECHNIQUE: Noncontrast 3 mm thick sections acquired from the diaphragms to the iliac crests. After the administration of intravenous contrast, 3 mm thick venous-phase and 15-minute delayed images acquired from the diaphragms to the iliac crests. For radiation dose reduction, the following was used: automated exposure control, adjustment of mA and/or kV according to patient size. COMPARISON: [facility], CT, CT ANGIO CHEST PE PROTOCOL, 09/06/2023, 14:57. FINDINGS: Image quality: Excellent. Lower chest: Interval decrease in size of the medial left lower lobe consolidation, measuring 2.6 x 1.7 centimeters, previously 2.9 x 3.7 centimeters. Enhancement is present. Resolved consolidation in the left lower lobe. Greater than 10 new scattered solid pulmonary nodules of the lungs. ABDOMEN: Adrenal Glands: 2.6 centimeter right adrenal adenoma based on Hounsfield units criteria (-2 Hounsfield unit). 1.7 centimeter left adrenal adenoma based on Hounsfield units criteria (-2) Liver: No solid mass. Gallbladder: Cholelithiasis without wall thickening or adjacent fat stranding to suggest acute cholecystitis. Biliary ducts: No biliary dilation. Pancreas: No ductal dilation. Spleen: Size is within normal limits. Kidneys and Ureters: No hydronephrosis. No solid mass. No complex renal cystic lesion which requires follow up. Stomach and Bowel: Normal colonic caliber, without significant wall thickening. Peritoneum: No abnormal intraperitoneal fluid. No free air. Ventral Wall: No hernia. Abdominal Nodes: No retroperitoneal or mesenteric adenopathy by size criteria. Vessels: Aorta and inferior vena cava are normal in size. Bones: No aggressive osseous abnormality. Degenerative disc disease of the lumbar spine. Moderate spinal canal narrowing at L3-4 due to a broad-based disc bulge and facet hypertrophy. IMPRESSION: Interval decrease in size of the left lower lobe lesion, with enhancement. New solid pulmonary nodules in the bilateral lungs. Findings are concerning for malignancy. Consider CT-guided biopsy. Resolved pneumonia in the left lower lobe. Benign bilateral adrenal adenomas based on Hounsfield units criteria. [place] [employer] recommend routine biochemical screening to exclude a functional adenoma. Moderate spinal canal narrowing at L3-4 due to degenerative disc disease and facet arthrosis. Findings discussed with Darby Braun at time of dictation. Dictated by: Owen He M.D. on 09/27/2023 at 11:56 Approved by: Owen He M.D. on 09/27/2023 at 12:12
== END ==
LOC: CT 10:37
PROVIDERS: PCP Registered Nurse; Referring Provider Registered Nurse; Visit Provider Registered Nurse
DX: D35.02 Benign neoplasm of left adrenal gland (principal); D35.01 Benign neoplasm of right adrenal gland; J18.9 Pneumonia, unspecified organism; R91.8 Other nonspecific abnormal finding of lung field; K80.20 Calculus of gallbladder without cholecystitis without obstruction; M51.36 Other intervertebral disc degeneration, lumbar region; M47.816 Spondylosis without myelopathy or radiculopathy, lumbar region
CPT/HCPCS: 74170; Q9967

== ENCOUNTER → 2023-10-04 07:31 | Outpatient (CLI) | payer OTHER, SELFPAY ==
--- NOTE | 2023-10-04 07:36 | DI.CT.S_ITS ---
PROCEDURE: CT CHEST W CON INDICATIONS: Abnormal CT TECHNIQUE: After the administration of intravenous contrast, 5 mm thick sections acquired from the pulmonary apices to the posterior costophrenic angles. 1 mm axial lung, 5 mm thick coronal and sagittal reformats and 7 mm axial MIP were acquired. For radiation dose reduction, the following was used: automated exposure control, adjustment of mA and/or kV according to patient size. COMPARISON: [facility], CT, CT ABDOMEN ADRENAL PROTOCOL, 09/27/2023, 10:46. [facility], CT, CT ANGIO CHEST PE PROTOCOL, 09/06/2023, 14:57. FINDINGS: Image quality: Diagnostic. Lower Neck: No enlarged lymph nodes. Thyroid: No thyroid nodules which require sonographic follow up, per consensus guidelines. Axillae: No enlarged lymph nodes. Chest Wall: Unremarkable. Bones: Unremarkable. Lungs and Pleura: No pleural effusion or pneumothorax. When compared with the study dated September 27, 2023, left lower lobe pulmonary mass is redemonstrated and measures approximately 1.7 x 2.0 cm on the current study. This measured 1.9 x 2.2 cm on the comparison CT dated September 27, 2023. Multiple pulmonary nodules are also redemonstrated at the right lung base. When compared with the prior study, many of these have decreased in size. The largest remaining nodule measures 6 mm in diameter and is similar in size to the prior study. Multiple subcentimeter pulmonary lesions are redemonstrated within the upper lobes which are new when compared with the prior chest CT dated September 06, 2023. Heart: Heart size is normal. No pericardial effusion. Thoracic Vessels: The aorta and pulmonary arteries demonstrate normal size. Scattered atheromatous calcifications are present within the aortic arch. Mediastinum and Elif: No enlarged lymph nodes. Esophagus: No wall thickening. No hiatal hernia. Upper Abdomen: Bilateral adrenal adenomas are redemonstrated. Visualized upper abdomen solid organs and bowel loops appear normal. IMPRESSION: 1. Slight decrease in the size of the left lower lobe pulmonary mass when compared with the study dated September 27, 2023. Additionally, there is a marked decrease in the dense consolidative radiopacities that were present in this region on the prior study dated September 06, 2023. These findings suggest resolving pneumonia; however an underlying pulmonary mass cannot be entirely excluded and continued follow-up to resolution is recommended. 2. Many of the pulmonary nodules visualized at the left lung base on the study dated September 27, 2023 have decreased in size. These findings raise the suspicion for resolving multifocal pneumonia or viral pneumonia. Of note, the patient is currently positive for COVID-19. Dictated by: Edita Arredondo M.D. on 10/04/2023 at 10:35 Approved by: Edita Arredondo M.D. on 10/04/2023 at 10:56
[2023-10-04 08:12] VITALS: BP 106/70; PULSE 74; RESP 16; TEMP 36.1; O2SAT 97; BMI 29.6
[2023-10-04 08:19] LABS: Platelet Count 296 X10^3/uL (150-400)
[2023-10-04 08:26] LABS: INR 0.9 (0.9-1.3); Prothrombin Time 10.1 SECONDS (9.4-12.5)
[2023-10-04 08:29] LABS: PTT Partial Thromboplastin Tim 31 SECONDS (25.1-36.5)
[2023-10-04 08:34] LABS: COVID19 -Nasal RAPID POSITIVE (Negative)
--- NOTE | 2023-10-04 09:25 | SUR.PREOP ---
Covid Positive: Patient tested positive for Covid. Notified DI. Received notice from DI that patient would have CT only, no biopsy today. DI staff transported patient to DI and are to discharge patient once CT completed.
== END ==
LOC: OR 07:31
PROVIDERS: Internal Medicine Critical Care Medicine; Radiology Vascular & Interventional Radiology; PCP Registered Nurse; Referring Provider Registered Nurse; Visit Provider Registered Nurse
DX: R91.8 Other nonspecific abnormal finding of lung field (principal); U07.1 COVID-19; Z53.09 Procedure and treatment not carried out because of other contraindication
CPT/HCPCS: 36415; 71260; 85014; 85049; 85610; 85730; 87635; Q9967

== ENCOUNTER → 2024-04-05 14:57 | Outpatient (CLI) | payer OTHER, SELFPAY ==
--- NOTE | 2024-04-05 14:58 | DI.MG.S_ITS ---
BILATERAL DIGITAL SCREENING MAMMOGRAM 3D/2D WITH CAD: 04/05/2024 CLINICAL: Routine screening. Family history of breast cancer. Comparison is made to exams dated: 01/03/2023 mammogram, 12/31/2021 mammogram, and 10/26/2020 mammogram - [facility]. There are scattered areas of fibroglandular density (category b / 25%-50% glandular tissue). Current study was also evaluated with a Computer Aided Detection (CAD) system. There are benign calcifications in both breasts. No significant masses, calcifications, or other findings are seen in either breast. There has been no significant interval change. IMPRESSION: BENIGN There is no mammographic evidence of malignancy. A 1 year screening mammogram is recommended. Based on the Tyrer Cuzick model (a risk assessment model) the patient's lifetime risk is 19.8% and her 10 year risk is 9.1%. According to the ACR, ACS, and NCCN guidelines, an annual breast MRI exam along with mammogram is recommended if the patient's lifetime risk is 20% or greater. This exam was interpreted at Station ID: [id number]. NOTE: For mammograms, a report in lay terms will be sent to the patient. Approximately 15% of breast malignancies will not be visualized mammographically. In the management of a palpable breast mass, a negative mammogram must not discourage biopsy of a clinically suspicious lesion. Electronically Signed By: Josh ruth/clover:04/06/2024 09:46:11 letter sent: Normal Exam ACR BI-RADS Category 2: Benign
--- NOTE | 2024-04-05 14:59 | DI.CT.S_ITS ---
PROCEDURE: CT CHEST WO CON INDICATIONS: annual screening/ pulmonary nodules TECHNIQUE: Noncontrast 2.0-2.5 mm thick sections acquired from the pulmonary apices to the posterior costophrenic angles. 7 mm thick axial MIP and 5 mm coronal and sagittal reformats were then acquired. For radiation dose reduction, the following was used: automated exposure control, adjustment of mA and/or kV according to patient size. COMPARISON: [facility], CT, CT ANGIO CHEST PE PROTOCOL, 09/06/2023, 14:57. FINDINGS: Image quality: Diagnostic. Lower Neck: No enlarged lymph nodes. Thyroid: No thyroid nodules which require sonographic follow up, per consensus guidelines. Axillae: No enlarged lymph nodes. Chest Wall: Unremarkable. Bones: Unremarkable. Lungs and Pleura: No pneumothorax or pleural effusions. The prior noted left lower lobe lung consolidation has resolved compatible with resolved post infectious or post inflammatory changes. No suspicious nodules or masses noted. No airway abnormalities. Heart: Heart size is normal. No pericardial effusion. Thoracic Vessels: The aorta and pulmonary arteries demonstrate normal size. Mediastinum and Elif: No enlarged lymph nodes. Esophagus: No wall thickening. No hiatal hernia. Upper Abdomen: Visualized upper abdomen solid organs and bowel loops appear normal. Bilateral low-density adrenal gland thickening again noted compatible with adrenal hypertrophy IMPRESSION: Resolution of prior noted left lower lobe lung consolidation consistent with resolved post infectious or post inflammatory changes. No suspicious nodules. Dictated by: Kishore French M.D. on 04/05/2024 at 15:27 Approved by: Kishore French M.D. on 04/05/2024 at 15:30
== END ==
PROVIDERS: PCP Registered Nurse; Referring Provider Registered Nurse; Visit Provider Registered Nurse
DX: Z12.31 Encounter for screening mammogram for malignant neoplasm of breast (principal); Z80.3 Family history of malignant neoplasm of breast; R91.8 Other nonspecific abnormal finding of lung field
CPT/HCPCS: 71250; 77063; 77067